=== PATIENT | female | born 1965 | race Caucasian/White ===

== ENCOUNTER 2017-03-06 12:43 | Emergency (ER) | payer OTHER ==
[2017-03-06 12:58] VITALS: BP 106/74; PULSE 74; RESP 18; TEMP 97.9; O2SAT 95
--- NOTE | 2017-03-06 13:03 | EDPHY ---
H & P Time Seen by Provider: 03/06/17 12:48 HPI/ROS: HPI Facial injury. 51-year-old female by private vehicle. She reports that she got up in the middle the night. She tripped on a long bathrobe, fell forward and struck her mid face on the backboard of her bed. She complains of facial swelling across her nasal bridge, brow ridge in a eyes. She denies any headache. She denies any changes in vision. No neck pain. No extremity pain. No numbness or weakness in her extremities. No changes in hearing. No other complaints. ROS: Constitutional: No fever, no chills. No weakness. Eyes: No discharge. No changes in vision. ENT: No sore throat. No nasal congestion or rhinorrhea. Respiratory: No cough. No shortness of breath. Cardiac: No chest pain, no palpitations. Gastrointestinal: No abdominal pain, no vomiting, no diarrhea. Genitourinary: No hematuria. No dysuria or increased frequency with urination. Musculoskeletal: No back pain. No neck pain. As above. Skin: No rashes. As above. Neurological: No headache. No focal weakness or altered sensation. Past medical history: Perineal cyst. Social history: Here by herself. Nonsmoker. Denies alcohol. Physical Exam: General Appearance: Alert, no distress. This patient is responding to questions appropriately and in full sentences. This patient appears well- hydrated and well-nourished. Head: Normocephalic atraumatic. Face: Facial bones are stable on palpation. She has diffuse swelling across her brow ridge, nasal bridge. She has infraorbital ecchymosis bilaterally and supra orbital ecchymosis on the right. No diplopia on upward gaze. No infraorbital paresthesia. Eyes: Pupils equal and round and reactive to light, no pallor or injection. No lid erythema or edema. ENT, Mouth: Mucous membranes moist. Dentition is intact. No malocclusion of the jaw. No tongue lacerations or abrasions. Pharynx is clear. The bilateral nasal canals are clear. No septal hematoma. External auditory canals and tympanic membranes are clear. No hemotympanum. Respiratory: There are no retractions, lungs are clear to auscultation with good air movement bilaterally. Chest wall is stable to AP and lateral palpation. Cardiovascular: Regular rate and rhythm. No murmur. Gastrointestinal: Abdomen is soft and nontender, no masses, bowel sounds normal. Neurological: Motor sensory function is intact. Cranial nerves are normal. Cerebellar function intact. Skin: Warm and dry, no rashes. No lacerations, abrasions or contusions. Musculoskeletal: Neck is supple and nontender. The trachea is midline. No midline cervical, thoracic, lumbar or sacral tenderness on palpation. No flank tenderness on palpation. Extremities are symmetrical, full range of motion. All joints in the bilateral upper and bilateral lower extremities range without pain or impingement. No tenderness on palpation of the long bones in the bilateral upper and bilateral lower extremities. Psychiatric: No agitation. No depression. Database: EKG: Imaging: CT maxillofacial without contrast: Soft tissue swelling more predominantly right brow ridge. Otherwise negative study. No fracture. Brain appears unremarkable. Results were discussed with staff radiologist Dr. Devon Live. Procedures: Emergency department course: After my evaluation, she was sent for noncontrast CT scan maxillofacial. 1:35 p.m., patient re-evaluated. Results of CT scan discussed with her. Differential diagnosis reviewed. She feels comfortable going home and I feel she is safe for discharge. Follow-up and return to emergency department precautions have been discussed with her. All of her questions were answered. She was discharged in good condition. Differential Diagnosis: The differential diagnosis on this patient includes but is not limited to facial fracture, orbital fracture. Basilar skull fracture, traumatic brain injury, cervical spine injury, other significant traumatic injury the noted unlikely. This represents a partial list of diagnoses considered. These considerations are based on history, physical exam, past history, reassessment and diagnostic testing. Smoking Status: Current every day smoker Constitutional: Initial Vital Signs Temperature (C) 36.6 C 03/06/17 12:54 Heart Rate 74 03/06/17 12:54 Respiratory Rate 18 03/06/17 12:54 Blood Pressure 106/74 03/06/17 12:54 O2 Sat (%) 95 03/06/17 12:54 O2 Delivery Mode Room Air Allergies/Adverse Reactions: Penicillins Allergy (Intermediate, Verified 03/06/17 12:53) Home Medications: Medication Instructions Recorded Colchicine 06/23/16 Lexapro 03/06/17 Medical Decision Making - Diagnostics Imaging Results: Imaging Impressions Face CT 03/06/17 13:00 Impression: 1. Right frontal scalp swelling. 2. No acute facial fracture. Findings discussed with Emergency Department physician, Rubi Medley MD on 03/06/2017 at 1326 hours. Departure - Departure Disposition: Home, Routine, Self-Care Clinical Impression: Facial injury, Facial contusion Condition: Good Instructions: Facial Contusion (ED) Additional Instructions: Read and follow provided instructions. Follow-up with your primary care physician in 2-3 days for re-evaluation. Ibuprofen dosin mg every 6 hours with meals for the next 3 days only. Take only as needed for pain. Return to the emergency department for worsening pain, any changes in vision, headache, vomiting or other serious concerns. Referrals: Alida Koenig MD [Primary Care Provider] - As per Instructions
== END 2017-03-06 13:41 | disposition home or self-care (01) ==
LOC: CED 12:43
DX: S00.83XA Contusion of other part of head, initial encounter (principal); F17.200 Nicotine dependence, unspecified, uncomplicated; W01.198A Fall on same level from slipping, tripping and stumbling with subsequent striking against other object, initial encounter
CPT/HCPCS: 70486-PO

== ENCOUNTER → 2017-10-28 | Outpatient (CLI) | payer OTHER | LOC: CIMAGING 07:09 | PROVIDERS: ATTEND Family Medicine | DX: S62.502A Fracture of unspecified phalanx of left thumb, initial encounter for closed fracture (principal) | CPT/HCPCS: 73130-PO ==

== ENCOUNTER → 2017-12-09 | Outpatient (CLI) | payer OTHER | LOC: CIMAGING 07:27 | PROVIDERS: ATTEND Family Medicine | DX: J40 Bronchitis, not specified as acute or chronic (principal) | CPT/HCPCS: 71046-PO ==

== ENCOUNTER → 2019-02-10 | Outpatient (CLI) | payer OTHER | LOC: CIMAGING 07:27 | PROVIDERS: ATTEND Family Medicine | DX: M54.9 Dorsalgia, unspecified (principal); R06.00 Dyspnea, unspecified; Z72.0 Tobacco use; J40 Bronchitis, not specified as acute or chronic | CPT/HCPCS: 71046-PO ==